=== PATIENT | male | born 1965 | race Caucasian/White ===

== ENCOUNTER 2017-01-05 12:28 | Emergency (ER) | payer OTHER | END 2017-01-05 13:01 | disposition home or self-care (01) | LOC: ER 12:28 | DX: J01.00 Acute maxillary sinusitis, unspecified (principal); L25.9 Unspecified contact dermatitis, unspecified cause; F17.210 Nicotine dependence, cigarettes, uncomplicated; Z79.899 Other long term (current) drug therapy ==